=== PATIENT | female | born 1990 | race Caucasian/White ===

== ENCOUNTER 2018-06-17 17:25 | Inpatient (IN) | payer OTHER ==
[2018-06-17] MEDS ORDERED: ONDANSETRON 4 MG/2 ML VIAL IVP ONE ×2 (17:36→19:59)
[2018-06-17] MEDS ORDERED: NS 1,000 ML IV ONE ×3 (17:36→19:59)
[2018-06-17] MEDS ORDERED: KETOROLAC 30 MG/1 ML SDV IVP ONE ×2 (17:56→21:46)
[2018-06-17 18:01] LABS: PLATELET COUNT 310 10^3/uL (150-400)
--- NOTE | 2018-06-17 18:40 | EDPHY ---
HPI/HX/ROS/PE/MDM Narrative: CHIEF COMPLAINT: Nausea, vomiting, diarrhea. HPI: This patient is a generally healthy 28 year old female. She presents today with nausea, vomiting, diarrhea, and generalized abdominal pain. Her symptoms began this afternoon around 12:30. She endorses some blood in her last bowel movement. The patient and her friend at bedside returned from a trip to [facility] last night. She states she did get lots of mosquito bites while there and ate a lot of fish. Her friend at bedside does not have any similar symptoms. The patient additionally endorses flank pain, and states she has history of kidney stones. She has had kidney stones in the past which required surgical intervention and has had a ureteral stent placed. She has had nausea and diarrhea associated with these in the past. The patient denies fever, headache, chest pain, shortness of breath, hematuria, dysuria, or other associated symptoms. REVIEW OF SYSTEMS: A comprehensive 10 system review of systems is otherwise negative aside from elements mentioned in the history of present illness and medical decision making. PMH: Kidney stones s/p surgical interventions. SOCIAL HISTORY: Friend at bedside. Employed. Lives in [place]. PHYSICAL EXAM: General:Patient is alert, in no acute distress. ENT:Eyes are normal to inspection. ENT inspection normal. Neck: Normal inspection. Full range of motion. Respiratory:No respiratory distress. Breath sounds normal bilaterally. Cardiovascular: Regular rate and rhythm. Strong peripheral pulses. Normal cap refill. Abdomen:The abdomen is nontender to palpation. There are no peritoneal signs. There are normal bowel sounds. Back: Normal to inspection. No tenderness to palpation. Skin: Normal color. No rash. Warm and dry. Extremities: Normal appearance. Full range of motion. Neuro: Oriented x3. Normal motor function. Normal sensory function. ED Course: 28 y/o female presents with nausea, vomiting, diarrhea, and abdominal pain beginning today after travelling for the last week in [facility]. On exam, she has generalized abdominal tenderness and left flank tenderness. Plan to administer IV Zofran, IV Toradol, and IVF for symptom relief. Plan for CBC, chemistries, UA, GI pathogen PCR. Reviewed laboratory results. UA positive for 2+ leuk esterase, WBCs. GI pathogen results pending. 20:17 Spoke with labor and delivery registered nurse. [facility], but initial read will be obtainable. This will help determine admission status vs outpatient followup. 21:38 Spoke with labor and delivery registered nurse. Preliminary results are positive for multiple types of e-coli and norovirus. Repeat tests for confirmation pending. 21:45 Reassessed patient. She continues to complain of considerable abdominal discomfort and continues to vomit despite multiple rounds of pain medication and antiemetics as well as fluids. Plan to admit for symptom control. 22:10 Spoke with hospitalist service. Dr. Fowler accepts admission for diarrhea, vomiting, abdominal pain. - Data Points Laboratory Results: Laboratory Results 06/17/18 17:45 06/17/18 17:45 06/17/18 06/17/18 06/17/18 19:20 17:45 17:45 WBC RBC Hgb Hct MCV MCH MCHC RDW Plt Count MPV Neut % (Auto) Lymph % (Auto) [place] % (Auto) Eos % (Auto) Baso % (Auto) Nucleat RBC Rel Count Absolute Neuts (auto) Absolute Lymphs (auto) Absolute Monos (auto) Absolute Eos (auto) Absolute Basos (auto) Absolute Nucleated RBC Immature Gran % Immature Gran # Sodium 138 mEq/L mEq/L (135-145) Potassium 4.4 mEq/L mEq/L (3.5-5.2) Chloride 107 mEq/L mEq/L (97-110) Carbon Dioxide 17 mEq/l L mEq/l (22-31) Anion Gap 14 mEq/L mEq/L (6-14) BUN 15 mg/dL mg/dL (7-23) Creatinine 0.7 mg/dL mg/dL (0.6-1.0) Estimated GFR > 60 Glucose 118 mg/dL H mg/dL (70-100) Calcium 10.1 mg/dL mg/dL (8.5-10.4) Beta HCG, Qual NEGATIVE Urine Color YELLOW Urine Appearance HAZY Urine pH 5.0 (5.0-7.5) Ur Specific [place] 1.023 (1.002-1.030) Urine Protein NEGATIVE (NEGATIVE) Urine Ketones 1+ H (NEGATIVE) Urine Blood 1+ H (NEGATIVE) Urine Nitrate NEGATIVE (NEGATIVE) Urine Bilirubin NEGATIVE (NEGATIVE) Urine Urobilinogen NEGATIVE EU EU (0.2-1.0) Ur Leukocyte Esterase 2+ H (NEGATIVE) Urine RBC 1-3 /hpf /hpf (0-3) Urine WBC 3-5 /hpf H /hpf (0-3) Ur Epithelial Cells TRACE /lpf /lpf (NONE-1+) Urine Mucus 1+ /lpf /lpf (NONE-1+) Urine Glucose NEGATIVE (NEGATIVE) 06/17/18 17:45 WBC 13.21 10^3/uL H 10^3/uL (3.80-9.50) RBC 5.41 10^6/uL H 10^6/uL (4.18-5.33) Hgb 15.9 g/dL g/dL (12.6-16.3) Hct 48.5 % H % (38.0-47.0) MCV 89.6 fL fL (81.5-99.8) MCH 29.4 pg pg (27.9-34.1) MCHC 32.8 g/dL g/dL (32.4-36.7) RDW 12.8 % % (11.5-15.2) Plt Count 310 10^3/uL 10^3/uL (150-400) MPV 11.3 fL fL (8.7-11.7) Neut % (Auto) 83.6 % H % (39.3-74.2) Lymph % (Auto) 8.8 % L % (15.0-45.0) [place] % (Auto) 6.6 % % (4.5-13.0) Eos % (Auto) 0.3 % L % (0.6-7.6) Baso % (Auto) 0.3 % % (0.3-1.7) Nucleat RBC Rel Count 0.0 % % (0.0-0.2) Absolute Neuts (auto) 11.05 10^3/uL H 10^3/uL (1.70-6.50) Absolute Lymphs (auto) 1.16 10^3/uL 10^3/uL (1.00-3.00) Absolute Monos (auto) 0.87 10^3/uL H 10^3/uL (0.30-0.80) Absolute Eos (auto) 0.04 10^3/uL 10^3/uL (0.03-0.40) Absolute Basos (auto) 0.04 10^3/uL 10^3/uL (0.02-0.10) Absolute Nucleated RBC 0.00 10^3/uL 10^3/uL (0-0.01) Immature Gran % 0.4 % % (0.0-1.1) Immature Gran # 0.05 10^3/uL 10^3/uL (0.00-0.10) Sodium Potassium Chloride Carbon Dioxide Anion Gap BUN Creatinine Estimated GFR Glucose Calcium Beta HCG, Qual Urine Color Urine Appearance Urine pH Ur Specific [place] Urine Protein Urine Ketones Urine Blood Urine Nitrate Urine Bilirubin Urine Urobilinogen Ur Leukocyte Esterase Urine RBC Urine WBC Ur Epithelial Cells Urine Mucus Urine Glucose Medications Given: Discontinued Medications Sodium Chloride (Ns) 1,000 mls @ 0 mls/hr IV ONCE ONE PRN Reason: Wide Open Stop: 06/17/18 17:37 Last Admin: 06/17/18 17:48 Dose: 1,000 mls Sodium Chloride (Ns) 1,000 mls @ 0 mls/hr IV EDNOW ONE; Wide Open PRN Reason: Protocol Stop: 06/17/18 17:48 Last Admin: 06/17/18 18:32 Dose: 1,000 mls Sodium Chloride (Ns) 1,000 mls @ 0 mls/hr IV EDNOW ONE; Wide Open PRN Reason: Protocol Stop: 06/17/18 20:00 Last Admin: 06/17/18 20:05 Dose: 1,000 mls Ketorolac Tromethamine (Toradol) 15 mg IVP EDNOW ONE Stop: 06/17/18 17:57 Last Admin: 06/17/18 18:31 Dose: 15 mg Ketorolac Tromethamine (Toradol) 15 mg IVP EDNOW ONE Stop: 06/17/18 21:47 Last Admin: 06/17/18 21:51 Dose: 15 mg Loperamide HCl ( Imodium) 4 mg PO EDNOW ONE Stop: 06/17/18 20:00 Last Admin: 06/17/18 20:04 Dose: 4 mg Ondansetron HCl (Zofran) 4 mg IVP EDNOW ONE Stop: 06/17/18 17:37 Last Admin: 06/17/18 17:49 Dose: 4 mg Ondansetron HCl (Zofran) 4 mg IVP EDNOW ONE Stop: 06/17/18 20:00 Last Admin: 06/17/18 20:04 Dose: 4 mg General Time Seen by Provider: 06/17/18 17:42 Initial Vital Signs: Initial Vital Signs Temperature (C) 36.5 C 06/17/18 17:27 Heart Rate 108 H 06/17/18 17:27 Respiratory Rate 25 H 06/17/18 17:27 Blood Pressure 99/65 L 06/17/18 17:27 O2 Sat (%) 98 06/17/18 17:27 O2 Delivery Mode Room Air Allergies/Adverse Reactions: Latex, Natural Rubber Allergy (Verified 06/17/18 17:30) Tape Allergy (Uncoded 06/17/18 17:30) Home Medications: Medication Instructions Recorded ALPRAZolam [Xanax 0.5 MG (*)] 0.5 mg PO DAILY PRN 06/17/18 Levonorgestrel-Ethin Estradiol 1 each PO DAILY 06/17/18 [Altavera-28 Tablet] Acetaminophen [Tylenol 325mg (*)] 325 mg PO Q6HRS PRN 06/18/18 Acetaminophen/ASA/Caffeine 1 each PO DAILY PRN 06/18/18 [Excedrin Tablet (*)] Ascorbic Acid [Vitamin C 500 mg 500 mg PO DAILY 06/18/18 (*)] Cyanocobalamin [Vitamin B12 (*)] 1,000 mcg PO DAILY 06/18/18 Herbals/Supplements -Info Only 1 each PO DAILY 06/18/18 [place]-3 Fatty Acids [Fish Oil 1000 1,000 mg PO DAILY 06/18/18 mg (*)] Departure - Departure Disposition: [facility] Inpatient Acute Clinical Impression: Nausea, vomiting, and diarrhea Abdominal pain Qualifiers: Abdominal location: generalized Qualified Code(s): R10.84 - Generalized abdominal pain Condition: Fair Report Scribed for: Jerrod Gonzalez Report Scribed by: Tita Gaming Date of Report: 06/17/18 Time of Report: 22:12 Physician Review and Approval Statement: Portions of this note were transcribed by an ED scribe. I personally performed the history, physical exam, and medical decision making; and confirm the accuracy of the information in the transcribed note.
[2018-06-17] MEDS ORDERED: LOPERAMIDE HCL 2 MG CAP PO ONE (19:59)
[2018-06-17] MEDS ORDERED: ONDANSETRON DISINTEGRATING 4 MG TAB PO PRN (22:10)
[2018-06-17] MEDS ORDERED: IBUPROFEN 600 MG TAB PO PRN (22:10)
[2018-06-17] MEDS ORDERED: PROMETHAZINE HCL 25 MG TAB PO PRN (22:10)
[2018-06-17] MEDS: NS 1,000 ML IV SCH ×2 (23:20→23:28)
--- NOTE | 2018-06-18 00:30 | PDGENHP ---
History and Physical - Chief Complaint Nausea vomiting abdominal pain - History of Present Illness Source-patient provides history appears reliable. EMR was reviewed and case discussed with ED provider. HPI high this is a very pleasant 28-year-old female with past medical history significant for anxiety depression who presents to the emergency department today with complaints of several hours of generalized abdominal pain cramping nausea vomiting. Patient return from vacationing in [facility] yesterday evening. Her symptoms have started approximately 12:30 p.m. Today. She denies any hematemesis but did have a bowel movement consisting of just dark blood. She has no known history hemorrhoids for diverticulitis. Patient does report a history of kidney stones as with and was concerned that she may have developed another kidney stone as she was also having some flank pain. She denies any dysuria hematuria. She has not been able to keep anything down despite multiple doses of antiemetics in the emergency department. She also reports intermittent flaring of her abdominal pain cramping. Patient denies any known sick contacts however she did state that her boyfriend who accompanied her on the trip did complain of some abdominal bloating earlier in the day but this did resolve. He did not develop any nausea vomiting or diarrhea. History Information - Allergies/Home Medication List Allergies/Adverse Reactions: Latex, Natural Rubber Allergy (Verified 06/17/18 17:30) Tape Allergy (Uncoded 06/17/18 17:30) Home Medications: Altavera-28 Tablet 06/17/18 [Last Taken Unknown] Xanax 06/17/18 [Last Taken Unknown] I have personally reviewed and updated: family history, medical history, social history, surgical history - Past Medical History Additional medical history: Anxiety, depression, kidney stones - Surgical History Additional surgical history: Cystoureteroscopy with history of stent placement. Tonsillectomy adenoidectomy - Family History Additional family history: No known sick contacts. Patient denies any IBD in the family. - Social History Smoking Status: Former smoker Alcohol Use: Occasionally Drug Use: Marijuana Additional social history: Patient is employed lives in [place]. Cor-full. Review of Systems Review of Systems: ROS: 10pt was reviewed & negative except for what was stated in HPI & below Constitutional: Reports: chills, recent illness, weakness (Generalized). Denies : fever EENMT: Reports: no symptoms Cardiac: Reports: no symptoms Respiratory: Reports: no symptoms Gastrointestinal: Reports: vomitting, rectal bleeding, diarrhea, nausea Genitourinary: Denies: dysuria, hematuria Muscolosketal: Reports: back pain, muscle pain Skin: Reports: no symptoms Neurological: Reports: no symptoms Hematologic/Lymphatic: Reports: no symptoms Physical Exam Physical Exam: Selected Entries 06/17/18 17:27 Blood Pressure Automatic Method Heart Rate 108 H Respiratory 25 H Rate O2 Sat (%) 98 Temperature (C) 36.5 C Blood Pressure 99/65 L Mean Arterial 76 Pressure (MAP) O2 Delivery Room Air Mode Temperature Oral Source Temp Pulse Resp BP Pulse Ox 37.2 C 114 H 17 114/70 98 06/17/18 23:02 06/17/18 23:02 06/17/18 23:02 06/17/18 23:02 06/17/18 23:02 Constitutional: no apparent distress, other (NAD. Patient appears fatigued and acutely ill but nontoxic.) Eyes: PERRL (Decreased reactivity light bilaterally but symmetric. Patient wears glasses.), anicteric sclera, EOMI (Grossly normal), No scleral injection Ears, Nose, Mouth, Throat: dry mucous membranes, other (No nasal discharge.), No poor dentition Cardiovascular: regular rate and rhythym, no murmur, rub, or gallop, tachycardia , No edema Peripheral Pulses: 2+: dorsalis-pedis (R), dorsalis-pedis (L) Respiratory: no respiratory distress, no rales or rhonchi, clear to auscultation , No inspiratory crackles Gastrointestinal: soft, non-tender abdomen, no palpable masses, distension, other (Hypoactive bowel sounds.), No guarding, No rebound Genitourinary: no bladder tenderness, No dubois in urethra Skin: warm, normal color, no rashes or abrasions Musculoskeletal: full muscle strength, other (Patient sits up independently. Moves all extremities.) Neurologic: AAOx3, sensation intact bilaterally, other (Grossly nonfocal exam.) , No facial droop Psychiatric: interacting appropriately, not encephalopathic, thought process linear, anxious Lab Data & Imaging Review 06/17/18 17:45 06/17/18 17:45 WBC 13.21 10^3/uL (3.80-9.50) H 06/17/18 17:45 RBC 5.41 10^6/uL (4.18-5.33) H 06/17/18 17:45 Hgb 15.9 g/dL (12.6-16.3) 06/17/18 17:45 Hct 48.5 % (38.0-47.0) H 06/17/18 17:45 MCV 89.6 fL (81.5-99.8) 06/17/18 17:45 MCH 29.4 pg (27.9-34.1) 06/17/18 17:45 MCHC 32.8 g/dL (32.4-36.7) 06/17/18 17:45 RDW 12.8 % (11.5-15.2) 06/17/18 17:45 Plt Count 310 10^3/uL (150-400) 06/17/18 17:45 MPV 11.3 fL (8.7-11.7) 06/17/18 17:45 Neut % (Auto) 83.6 % (39.3-74.2) H 06/17/18 17:45 Lymph % (Auto) 8.8 % (15.0-45.0) L 06/17/18 17:45 [place] % (Auto) 6.6 % (4.5-13.0) 06/17/18 17:45 Eos % (Auto) 0.3 % (0.6-7.6) L 06/17/18 17:45 Baso % (Auto) 0.3 % (0.3-1.7) 06/17/18 17:45 Nucleat RBC Rel Count 0.0 % (0.0-0.2) 06/17/18 17:45 Absolute Neuts (auto) 11.05 10^3/uL (1.70-6.50) H 06/17/18 17:45 Absolute Lymphs (auto) 1.16 10^3/uL (1.00-3.00) 06/17/18 17:45 Absolute Monos (auto) 0.87 10^3/uL (0.30-0.80) H 06/17/18 17:45 Absolute Eos (auto) 0.04 10^3/uL (0.03-0.40) 06/17/18 17:45 Absolute Basos (auto) 0.04 10^3/uL (0.02-0.10) 06/17/18 17:45 Absolute Nucleated RBC 0.00 10^3/uL (0-0.01) 06/17/18 17:45 Immature Gran % 0.4 % (0.0-1.1) 06/17/18 17:45 Immature Gran # 0.05 10^3/uL (0.00-0.10) 06/17/18 17:45 Sodium 138 mEq/L (135-145) 06/17/18 17:45 Potassium 4.4 mEq/L (3.5-5.2) 06/17/18 17:45 Chloride 107 mEq/L (97-110) 06/17/18 17:45 Carbon Dioxide 17 mEq/l (22-31) L 06/17/18 17:45 Anion Gap 14 mEq/L (6-14) 06/17/18 17:45 BUN 15 mg/dL (7-23) 06/17/18 17:45 Creatinine 0.7 mg/dL (0.6-1.0) 06/17/18 17:45 Estimated GFR > 60 06/17/18 17:45 Glucose 118 mg/dL (70-100) H 06/17/18 17:45 Calcium 10.1 mg/dL (8.5-10.4) 06/17/18 17:45 Beta HCG, Qual NEGATIVE 06/17/18 17:45 Urine Color YELLOW 06/17/18 19:20 Urine Appearance HAZY 06/17/18 19:20 Urine pH 5.0 (5.0-7.5) 06/17/18 19:20 Ur Specific [place] 1.023 (1.002-1.030) 06/17/18 19:20 Urine Protein NEGATIVE (NEGATIVE) 06/17/18 19:20 Urine Ketones 1+ (NEGATIVE) H 06/17/18 19:20 Urine Blood 1+ (NEGATIVE) H 06/17/18 19:20 Urine Nitrate NEGATIVE (NEGATIVE) 06/17/18 19:20 Urine Bilirubin NEGATIVE (NEGATIVE) 06/17/18 19:20 Urine Urobilinogen NEGATIVE EU (0.2-1.0) 06/17/18 19:20 Ur Leukocyte Esterase 2+ (NEGATIVE) H 06/17/18 19:20 Urine RBC 1-3 /hpf (0-3) 06/17/18 19:20 Urine WBC 3-5 /hpf (0-3) H 06/17/18 19:20 Ur Epithelial Cells TRACE /lpf (NONE-1+) 06/17/18 19:20 Urine Mucus 1+ /lpf (NONE-1+) 06/17/18 19:20 Urine Glucose NEGATIVE (NEGATIVE) 06/17/18 19:20 Assessment & Plan Assessment: 28-year-old female with history of anxiety, depression, and kidney stones who presents emergency department today with complaints of several hours of abdominal pain nausea vomiting diarrhea. #gastroenteritis - patient preliminary GI PCR panel positive for norovirus and undifferentiated coli. Awaiting final report will be available morning. For now will hold off on any antibiotic therapy and continue with supportive care IV fluids and antiemetics. #nausea/vomiting/diarrhea - patient's symptoms slowly improving. She does receive multiple doses of antiemetics in the emergency department the had continued vomiting at that time. She denies any hematemesis. Awaiting PCR studies as noted above. #Abdominal pain (Acute) - patient reports Toradol did improve her symptoms she just received 30 mg of Toradol total before arrival to the floor. Creatinine is adequate. P.r.n. [place]. patient's GI symptoms improved will continue to monitor for any suggestive symptoms for kidney stones as patient does have a history. Suspect at this time however that patient has some radiating pain to her back related to her acute GI illness. #rectal bleeding - patient reports singular episode of dark yolie blood with her last BM. She has not had additional bowel movement yet since arrival continue to monitor H&H. Suspect a hemorrhoid versus less likely diverticular bleed or related to colitis. #anxiety/depression - ativan prn. FEN - continue with IV fluid supplementation as patient nausea is becomes under control. Advance diet as tolerated. PPX-SCDs. Holding anticoagulation in setting of reported GI bleeding. Cor status-full Disposition-patient admitted observation status on [facility] floor for continued support for IV fluid supplementation, pain control, antiemetics.
[2018-06-18] MEDS: LORazepam 2 MG/ML INJ IVP PRN ×2 (01:32→10:24)
[2018-06-18] MEDS ORDERED: HYDROCODONE/APAP 5/325 TAB PO PRN (02:31)
[2018-06-18] MEDS: ONDANSETRON 4 MG/2 ML VIAL IVP PRN ×3 (11:10→19:37)
--- NOTE | 2018-06-18 13:21 | HOSPPROG ---
Hospitalist Progress Note Assessment/Plan: 28-year-old female with history of anxiety, depression, and kidney stones who presents emergency department with complaints of several hours of abdominal pain nausea vomiting diarrhea. #gastroenteritis - GI PCR panel positive for norovirus EAEC, ETEC, e coli shiga like toxin -supportive care w IV hydration #nausea/vomiting/diarrhe - patient's symptoms slowly improving. -having multiple bouts of diarrhea today -will cont clears for now #Abdominal pain (Acute) -better #back pain -Toradol has helped the most #rectal bleeding -recheck labs in a.m. -likely from the acute gastroenteritis #anxiety/depression - Ativan prn. #electrolyte abnormalities -add K and Mag protocol #plan: patient unlikely to keep up with enough oral intake, having multiple bouts of diarrhea, will recheck electrolytes in the morning, cont on clear liquid diet, continue iv fluids. Subjective: Ana Maria is c/o back pain and the ongoing diarrhea. Objective: Vital Signs Temp Pulse Resp BP Pulse Ox 36.7 C 97 16 112/75 98 06/18/18 11:50 06/18/18 11:50 06/18/18 11:50 06/18/18 11:50 06/18/18 11:50 Laboratory Results 06/18/18 04:50 06/17/18 06/18/18 06/19/18 05:59 05:59 05:59 Intake Total 2500 Balance 2500 - Physical Exam Constitutional: no apparent distress, appears nourished, obese Eyes: PERRL Ears, Nose, Mouth, Throat: hearing normal Cardiovascular: regular rate and rhythym Respiratory: no respiratory distress Gastrointestinal: normoactive bowel sounds, soft, non-tender abdomen Skin: warm Neurologic: AAOx3 Psychiatric: interacting appropriately ICD10 Worksheet Patient Problems: Problems Problem Status Onset Abdominal pain Acute Nausea, vomiting, and diarrhea Acute UTI (urinary tract infection) Acute Ureterolithiasis Acute
[2018-06-18] MEDS ORDERED: PROTOCOL POTASSIUM 1 DOSE MISC PRN (14:33)
[2018-06-18] MEDS ORDERED: PROTOCOL MAGNESIUM 1 DOSE IV PRN (14:33)
[2018-06-18] MEDS ORDERED: KETOROLAC 15 MG/1 ML SDV IVP PRN (14:34)
--- NOTE | 2018-06-18 14:37 | ASMTCMCOM ---
CM Note CM Note Notes: Pt is a 28 y/o female admitted for diarrhea. Pt has a hx of depression and anxiety. CM attempted to meet w/ pt today but she was not interested in getting any resources for her mental illness. Pt will most likely d/c independent when medically stable. No therapies ordered at this time. CM available for changes. Plan: Independent Date Signed: 06/18/2018 02:37 PM Electronically Signed By:PRAMOD Davis
[2018-06-18] MEDS ORDERED: POTASSIUM CL 10 MEQ TAB PO ONE (15:09)
[2018-06-18] MEDS ORDERED: MAGNESIUM SULF 1 GM/DEXTROSE 100 ML IV ONE (15:09)
[2018-06-18] MEDS ORDERED: PROTOCOL CALCIUM 1 DOSE IV PRN (17:03)
[2018-06-18] MEDS: POTASSIUM Cl (KCl) 100 ML IV SCH ×3 (20:48→23:08)
[2018-06-19] MEDS: NS 1,000 ML IV SCH ×2 (01:53→09:59)
[2018-06-19 05:44] LABS: PLATELET COUNT 175 10^3/uL (150-400)
--- NOTE | 2018-06-19 07:47 | PDMN ---
Medical Necessity Medical necessity: Change to inpt as of 06/19/18 @ 17:48, meets inpt criteria per MD order and M-170, Gastroenteritis. 28 y/o admitted w/N/V/D and abd pain due to gastroenteritis, GI PCR panel + for norovirus EAEC, ETEC, e coli shiga like toxin. Upgraded to inpt for ongoing diarrhea and rectal bleeding, back pain , and electrolyte abnormalities (Mg 1.5, Ca 6.9, K 3.3), cont IVF, K and Mg protocols, recheck labs in AM, cl liq diet, pain management. Est LOS>2MN for cont management of above.
[2018-06-19] MEDS ORDERED: POTASSIUM CL 10 MEQ TAB PO ONE (09:35)
[2018-06-19] MEDS ORDERED: CALCIUM GLUCONATE 50 ML IV ONE (09:35)
[2018-06-19] MEDS: ACETAMINOPHEN 325 MG TAB PO PRN ×2 (10:06→17:07)
--- NOTE | 2018-06-19 12:07 | HOSPPROG ---
Hospitalist Progress Note Assessment/Plan: 28-year-old female with history of anxiety, depression, and kidney stones who presents emergency department with complaints of several hours of abdominal pain nausea vomiting diarrhea. #gastroenteritis (norovirus and travelers diarrhea) - GI PCR panel positive for norovirus EAEC, ETEC, e coli shiga like toxin ( recent travel to [facility]) - trial of reg diet #nausea/vomiting/diarrhea -much improved #Abdominal pain (Acute) -better #back pain -Toradol has helped the most #rectal bleeding -likely from the acute gastroenteritis #anxiety/depression - Ativan prn. #electrolyte abnormalities -add K and Mag protocol #plan: if can eat and drink and not have multiple bowel movements; will dc later today Subjective: Ana Maria is feeling much better today. Objective: Vital Signs Temp Pulse Resp BP Pulse Ox 36.8 C 84 18 117/82 H 95 06/19/18 11:51 06/19/18 11:51 06/19/18 11:51 06/19/18 11:51 06/19/18 11:51 Laboratory Results 06/19/18 05:07 06/19/18 05:07 06/18/18 06/19/18 06/20/18 05:59 05:59 05:59 Intake Total 2950 Balance 2950 - Physical Exam Constitutional: no apparent distress, appears nourished, not in pain Eyes: PERRL Ears, Nose, Mouth, Throat: hearing normal Cardiovascular: regular rate and rhythym Respiratory: no respiratory distress Gastrointestinal: normoactive bowel sounds, soft, non-tender abdomen Skin: warm, normal color Musculoskeletal: full muscle strength Neurologic: AAOx3 Psychiatric: interacting appropriately, not anxious ICD10 Worksheet Patient Problems: Problems Problem Status Onset Abdominal pain Acute Nausea, vomiting, and diarrhea Acute UTI (urinary tract infection) Acute Ureterolithiasis Acute
[2018-06-19] MEDS: LORazepam 2 MG/ML INJ IVP PRN (12:53)
[2018-06-19 16:11] VITALS: BP 111/87
--- NOTE | 2018-06-19 17:14 | GDS ---
[f rep st] DISCHARGE SUMMARY DISCHARGE DIAGNOSES: 1. Viral gastroenteritis consistent with traveler's diarrhea as well as norovirus. 2. Nausea, vomiting, diarrhea. 3. Abdominal pain. 4. Back pain. 5. Rectal bleeding. 6. Anxiety, depression. 7. Electrolyte abnormalities. Briefly, the patient is a very sweet 28-year-old female with a history of anxiety, depression, kidney stones. She presented to the ER with complaints of several hours of abdominal pain, nausea, vomitin g, diarrhea. In further talking to her, she and her boyfriend were recently in [facility]. They bot h developed similar symptoms. A GI PCR panel was positive for norovirus, EHEC, ETEC, and E coli shig a like toxin. She was treated with IV hydration. She is markedly better. She has had 2 loose stool s today, but tolerating a light diet. HOSPITAL COURSE PER PROBLEM: 1. Gastritis. This is norovirus and traveler's diarrhea. She is feeling better today. 2. Nausea, vomiting, diarrhea, much improved. She will get a script for Zofran if needed. 3. Abdominal pain, resolved. 4. Back pain. No complaints. 5. Rectal bleeding. This is likely from acute gastroenteritis. 6. Anxiety, depression, stable. 7. Electrolyte abnormalities. She was placed on the electrolyte protocol during her stay. DISCHARGE CONDITION: Stable. Blood pressure is 111/87, heart rate of 87, respiratory rate of 18, O2 sats on room air 100%, temperature is 36.9 Celsius. MEDICATIONS AT DISCHARGE: Please see the EMR. DISCHARGE INSTRUCTIONS: 1. For her stay well hydrated, recommending that she take in Pedialyte and some Gatorade just to roslyn p her electrolytes up. 2. If she is having repeat loose stools, go back to a clear liquid diet and then to a BRAT diet. /[id number]/MODL
== END 2018-06-19 17:22 | disposition home or self-care (01) | DRG 392 ==
LOC: F3E 22:56 → OBSVTOIN 06-18 17:48
PROVIDERS: ADMIT Family Medicine; ATTEND Family Medicine
DX: A08.11 Acute gastroenteropathy due to Norwalk agent (principal); A04.4 Other intestinal Escherichia coli infections; K62.5 Hemorrhage of anus and rectum; Z87.442 Personal history of urinary calculi; Z87.891 Personal history of nicotine dependence
CPT/HCPCS: 96374; G0378; J0610; J1885; J2060; J2270; J2405; J3475; J3480